=== PATIENT | male | born 1955 | race African-American/Black ===

== ENCOUNTER 2016-09-26 13:32 | Emergency (ER) | payer MEDICAID ==
[~2016-09-26] VITALS: Ht 170.2 cm; Wt 100.0 kg
[~2016-09-26 13:32] MED LIST: ALBU6.7H INH; AMOX-424 PO; ASPI-1035 PO; FLUT1DIS3 INH; LISI1TAB13 PO; METF500T4 PO; [UNRECOGNIZED DRUG - CODE] TP
[2016-09-26 15:34] LABS: CLARITY URINE CLEAR (CLEAR); COLOR URINE YELLOW (YELLOW); GLUCOSE URINE NEGATIVE (NEGATIVE); KETONES URINE TRACE (NEGATIVE); LEUKOCYTE ESTERASE URINE NEGATIVE (NEGATIVE); NITRITE URINE NEGATIVE (NEGATIVE); OCCULT BLOOD URINE NEGATIVE (NEGATIVE); PH URINE 5.5 (4.5-8.0); PROTEIN URINE 2+ (NEGATIVE); SPECIFIC GRAVITY URINE 1.025 (1.005-1.030)
[2016-09-26 15:34] LABS: BASOPHILS % 0.6 % (0.0-2.0); EOSINOPHILS % 1.9 % (0.0-5.0); HEMATOCRIT. 42.9 % (42.0-52.0); HEMOGLOBIN. 14.2 g/dL (14.0-18.0); LYMPHOCYTES % 14.4 % (20.0-50.0); MEAN CORPUSCULAR HEMOGLOBIN 27.3 pg (28.0-32.0); MEAN CORPUSCULAR HGB CONC 33.2 g/dL (31.0-37.0); MEAN CORPUSCULAR VOLUME 82.4 fL (80.0-94.0); MEAN PLATELET VOLUME 10.9 fl (7.4-10.4); NEUTROPHILS % 75.1 % (40.0-76.0); RED BLOOD CELL COUNT 5.21 mill/uL (4.7-6.1); RED CELL DISTRIBUTION WIDTH 20.5 % (11.6-14.6); WHITE BLOOD COUNT 9.5 x1000/uL (4.5-11.0)
[2016-09-26 15:39] LABS: DIFFERENTIAL COMMENT 1
[2016-09-26 15:43] LABS: CHLORIDE 104 mEq/L (98-107); INDEX HEMOLYSI 1 (1-3); INDEX ICTERIC 1 (1-4); INDEX LIPEMIC 1 (1-3)
[2016-09-26 15:52] LABS: ALANINE AMINOTRANSFERASE 30 IU/L (13-61); ALBUMIN 3.8 g/dL (3.4-5.0); ANION GAP 11; CARBON DIOXIDE 30 mEq/L (21-32); UREA NITROGEN BLOOD 13 mg/dL (7-21); eGFR > 60 mL/min (>60)
[2016-09-26 15:53] LABS: BACTERIA URINE 1+; RBC URINE 0-2 /hpf (0-2); SQUAMOUS EPITHELIAL CELL URINE FEW /lpf (RARE/1+); WBC URINE 0-2 /hpf (0-2)
[2016-09-26 16:15] LABS: PLATELET 145 x1000/uL (130-400)
[2016-09-26 18:20] VITALS: BP 155/92
== END 2016-09-26 18:50 | disposition home or self-care (01) ==
LOC: ER 15:13
DX: E11.65 Type 2 diabetes mellitus with hyperglycemia (principal); H92.09 Otalgia, unspecified ear; J02.9 Acute pharyngitis, unspecified; I10 Essential (primary) hypertension; Z79.84 Long term (current) use of oral hypoglycemic drugs; Z79.82 Long term (current) use of aspirin
CPT/HCPCS: 36415; 80053; 81001; 82962; 85025; 93005; 99285

== ENCOUNTER 2017-05-26 14:00 | Inpatient (IN) | payer MEDICAID ==
[~2017-05-26] VITALS: Ht 167.6 cm; Wt 96.2 kg
[~2017-05-26 14:00] MED LIST changes: -ASPI-1035 PO; +ASPI-1159 PO
[2017-05-26 19:25] LABS: HEMOGLOBIN. 13.7 g/dL (14.0-18.0); MEAN CORPUSCULAR HEMOGLOBIN 29.3 pg (28.0-32.0); MEAN CORPUSCULAR VOLUME 87.7 fL (80.0-94.0); MEAN PLATELET VOLUME 11.3 fl (7.4-10.4); PLATELET 105 x1000/uL (130-400); RED BLOOD CELL COUNT 4.68 mill/uL (4.7-6.1); RED CELL DISTRIBUTION WIDTH 15.1 % (11.6-14.6)
[2017-05-26 19:30] LABS: PROTHROMBIN TIME 10.4 sec (9.4-11.6)
[2017-05-26 19:33] LABS: CHLORIDE 107 mEq/L (98-107)
[2017-05-26 19:37] LABS: AMMONIA < 25 uMol/L (<32)
[2017-05-26 19:43] LABS: CARBON DIOXIDE 30 mEq/L (21-32)
[2017-05-26 19:45] LABS: TROPONIN I 0.07 ng/mL (0.00-0.04)
[2017-05-26 19:59] LABS: HEPATITIS B SURFACE ANTIGEN NEGATIVE
[2017-05-26 20:27] LABS: HEPATITIS B CORE AB IGM NEGATIVE
[2017-05-26 20:29] LABS: HEPATITIS A AB IGM NEGATIVE (NEGATIVE)
[2017-05-26 21:30] LABS: ATYPICAL LYMPHOCYTES 2; PLATELET ESTIMATE DECREASED
[2017-05-27] VITALS (7 sets, daily range): BP systolic 95–140; BP diastolic 71–79
[2017-05-27] MEDS ORDERED: ACETAMINOPHEN 325MG TABLET PO PRN (00:15)
[2017-05-27] MEDS ORDERED: CLONIDINE 0.1MG TABLET PO PRN (00:15)
[2017-05-27] MEDS ORDERED: MAGNESIUM/ALUMINUM HYDROXIDE/SIMETHICONE 30ML UDC PO PRN (00:15)
[2017-05-27] MEDS ORDERED: ONDANSETRON HCL 4MG/2ML VIAL IV PRN (00:15)
[2017-05-27 00:36] LABS: CLARITY URINE CLOUDY (CLEAR); COLOR URINE DARK YELLOW (YELLOW); KETONES URINE TRACE (NEGATIVE); LEUKOCYTE ESTERASE URINE NEGATIVE (NEGATIVE); NITRITE URINE NEGATIVE (NEGATIVE); OCCULT BLOOD URINE TRACE (NEGATIVE); PROTEIN URINE 2+ (NEGATIVE); SPECIFIC GRAVITY URINE 1.025 (1.005-1.030)
[2017-05-27] MEDS ORDERED: CEFTRIAXONE 1 G PREMIX 50 ML IV SCH (01:00)
[2017-05-27 01:03] LABS: *AMPHETAMINES SCREEN URINE NEGATIVE (NEGATIVE); *BARBITURATES SCREEN URINE NEGATIVE (NEGATIVE); *BENZODIAZEPINES SCREEN URINE NEGATIVE (NEGATIVE); *COCAINE SCREEN URINE PRESUMTIVE POSITIVE (NEGATIVE); CANNABINOID URINE SCREEN NEGATIVE (NEGATIVE); METHADONE URINE SCREEN NEGATIVE (NEGATIVE); OPIATES URINE SCREEN NEGATIVE (NEGATIVE); PHENCYCLIDINE URINE SCREEN NEGATIVE (NEGATIVE)
[2017-05-27] MEDS ORDERED: AZITHROMYCIN 500 MG in DEXT 5% WATER 250 ML IV SCH (02:00)
[2017-05-27] MEDS: SODIUM CHLORIDE 0.9% 1,000 ML IV SCH ×2 (03:18→18:12)
[2017-05-27] MEDS ORDERED: DEXTROSE 50% WATER 50ML SYRINGE IV PRN (05:30)
[2017-05-27] MEDS: BLOOD SUGAR DIAGNOSTIC STRIP TEST SCH ×4 (06:43→20:37)
[2017-05-27] MEDS: INSULIN LISPRO 100 UNITS/ML SUBCUT SCH ×4 (06:44→22:11)
[2017-05-27 07:08] LABS: HEMATOCRIT. 37.7 % (42.0-52.0); HEMOGLOBIN. 12.5 g/dL (14.0-18.0); MEAN CORPUSCULAR HEMOGLOBIN 28.6 pg (28.0-32.0); MEAN CORPUSCULAR VOLUME 86.4 fL (80.0-94.0); MEAN PLATELET VOLUME 11.7 fl (7.4-10.4); PLATELET 103 x1000/uL (130-400); RED BLOOD CELL COUNT 4.36 mill/uL (4.7-6.1); RED CELL DISTRIBUTION WIDTH 14.8 % (11.6-14.6)
[2017-05-27 07:35] LABS: CREATINE KINASE MB FRACTION 3.1 ng/mL (0.5-3.6); TROPONIN I 0.06 ng/mL (0.00-0.04)
[2017-05-27] MEDS ORDERED: LISINOPRIL PO SCH (09:00)
[2017-05-27] MEDS ORDERED: ALBUTEROL 6.7GM HFA INHALER INH SCH (09:00)
[2017-05-27] MEDS ORDERED: AMOXICILLIN/POTASSIUM CLAVULANATE 875/125MG TAB PO SCH (09:00)
[2017-05-27] MEDS ORDERED: METFORMIN HCL 500MG TABLET PO SCH (09:00)
[2017-05-27] MEDS ORDERED: HYDROCHLOROTHIAZIDE PO SCH (09:00)
[2017-05-27] MEDS ORDERED: AMMONIUM LACTATE 12% LOTION 240ML TOP SCH (09:00)
[2017-05-27] MEDS ORDERED: MEDICATION NOT ON FORMULARY EA (Fluticasone/Salmeterol (Advair 250-50 Diskus) 1 PUFF) INH SCH (09:00)
[2017-05-27] MEDS ORDERED: [UNRECOGNIZED DRUG - OTHER] PO SCH (09:00)
[2017-05-27] MEDS: BUDESONIDE 0.5MG/2ML NEB HHN SCH (09:13)
[2017-05-27] MEDS: LISINOPRIL 20MG TABLET PO SCH (10:55)
[2017-05-27] MEDS: HYDROCHLOROTHIAZIDE 25MG TABLET PO SCH (10:55)
[2017-05-27] MEDS: ASPIRIN 81MG EC TABLET PO SCH (10:56)
[2017-05-27] MEDS: CEFTRIAXONE 1 G PREMIX 50 ML IV SCH (11:02)
[2017-05-27] MEDS ORDERED: INFLUENZA VIRUS VACCINE 0.5ML SYR IM ONE (12:00)
[2017-05-27] MEDS ORDERED: PNEUMOCOCCAL 23-VAL P-SAC VAC 0.5 ML IM ONE (12:00)
[2017-05-27 16:55] LABS: CREATINE KINASE MB FRACTION 4.1 ng/mL (0.5-3.6); TROPONIN I 0.05 ng/mL (0.00-0.04)
[2017-05-27 17:23] LABS: ATYPICAL LYMPHOCYTES 2; PLATELET ESTIMATE DECREASED
[2017-05-27] MEDS: CLOPIDOGREL 75MG TABLET PO SCH (18:12)
[2017-05-27] MEDS: NICOTINE 14MG PATCH TD SCH (18:12)
[2017-05-28] VITALS: BP 145/67
[2017-05-28 04:00] VITALS: BP 152/89
[2017-05-28] MEDS: IPRATROPIUM/ALBUTEROL 0.5-3(2.5)MG/3ML NEB INH PRN ×2 (04:55→21:22)
[2017-05-28] MEDS: ALBUTEROL (0.083%) 2.5MG/3ML NEB HHN SCH ×3 (04:58→14:20)
[2017-05-28] MEDS: SODIUM CHLORIDE 0.9% 1,000 ML IV SCH ×3 (05:35→22:40)
[2017-05-28] MEDS ORDERED: AZITHROMYCIN 500MG in DEXTROSE 5% WATER 250ML IV SCH (06:00)
[2017-05-28] MEDS: BLOOD SUGAR DIAGNOSTIC STRIP TEST SCH ×4 (06:17→21:00)
[2017-05-28] MEDS: INSULIN LISPRO 100 UNITS/ML SUBCUT SCH ×4 (06:28→22:48)
[2017-05-28 06:58] LABS: HEMATOCRIT. 39.1 % (42.0-52.0); HEMOGLOBIN. 13.2 g/dL (14.0-18.0); MEAN CORPUSCULAR HEMOGLOBIN 29.5 pg (28.0-32.0); MEAN CORPUSCULAR VOLUME 87.3 fL (80.0-94.0); MEAN PLATELET VOLUME 11.7 fl (7.4-10.4); PLATELET 116 x1000/uL (130-400); RED BLOOD CELL COUNT 4.48 mill/uL (4.7-6.1); RED CELL DISTRIBUTION WIDTH 14.8 % (11.6-14.6)
[2017-05-28 08:00] VITALS: BP 122/76
[2017-05-28] MEDS: ASPIRIN 81MG EC TABLET PO SCH (08:14)
[2017-05-28] MEDS: CLOPIDOGREL 75MG TABLET PO SCH (08:14)
[2017-05-28] MEDS: HYDROCHLOROTHIAZIDE 25MG TABLET PO SCH (08:14)
[2017-05-28] MEDS: LISINOPRIL 20MG TABLET PO SCH (08:14)
[2017-05-28] MEDS: NICOTINE 14MG PATCH TD SCH (08:15)
[2017-05-28] MEDS: CEFTRIAXONE 1 G PREMIX 50 ML IV SCH (09:17)
[2017-05-28 12:00] VITALS: BP 134/71
[2017-05-28 13:52] LABS: PLATELET ESTIMATE SLIGHTLY DECREASED
[2017-05-28 16:00] VITALS: BP 146/68
[2017-05-28 19:51] LABS: ETHANOL BLOOD < 10 mg/dL; T4 FREE 1.47 ng/dL (0.76-1.46)
[2017-05-28 20:56] VITALS: BP 154/85
[2017-05-28 21:10] LABS: FOLIC ACID (FOLATE) SERUM 11.1 ng/mL (>5.38)
[2017-05-28] MEDS: BUDESONIDE 0.5MG/2ML NEB HHN SCH (21:22)
[2017-05-29 00:25] VITALS: BP 141/80
[2017-05-29] MEDS: IPRATROPIUM/ALBUTEROL 0.5-3(2.5)MG/3ML NEB INH PRN ×2 (01:11→16:09)
[2017-05-29 04:00] VITALS: BP 141/75
[2017-05-29] MEDS: BLOOD SUGAR DIAGNOSTIC STRIP TEST SCH ×4 (07:10→20:37)
[2017-05-29 07:43] LABS: HEMATOCRIT. 39.3 % (42.0-52.0); HEMOGLOBIN. 12.9 g/dL (14.0-18.0); MEAN CORPUSCULAR HEMOGLOBIN 28.4 pg (28.0-32.0); MEAN CORPUSCULAR VOLUME 86.7 fL (80.0-94.0); MEAN PLATELET VOLUME 11.3 fl (7.4-10.4); PLATELET 131 x1000/uL (130-400); RED BLOOD CELL COUNT 4.54 mill/uL (4.7-6.1); RED CELL DISTRIBUTION WIDTH 14.7 % (11.6-14.6)
[2017-05-29] MEDS: AZITHROMYCIN 500 MG in SODIUM CHLORIDE 0.9% 250 ML IV SCH (07:49)
[2017-05-29 08:00] VITALS: BP 156/96
[2017-05-29 08:17] LABS: CARBON DIOXIDE 29 mEq/L (21-32); CHLORIDE 107 mEq/L (98-107)
[2017-05-29] MEDS: BUDESONIDE 0.5MG/2ML NEB HHN SCH ×2 (08:41→21:16)
[2017-05-29] MEDS: ALBUTEROL (0.083%) 2.5MG/3ML NEB HHN SCH ×3 (08:41→21:16)
[2017-05-29] MEDS: ASPIRIN 81MG EC TABLET PO SCH (09:00)
[2017-05-29] MEDS: INSULIN LISPRO 100 UNITS/ML SUBCUT SCH ×4 (09:09→21:44)
[2017-05-29] MEDS: HYDROCHLOROTHIAZIDE 25MG TABLET PO SCH (10:36)
[2017-05-29] MEDS: CLOPIDOGREL 75MG TABLET PO SCH (10:37)
[2017-05-29] MEDS: LISINOPRIL 20MG TABLET PO SCH (10:37)
[2017-05-29] MEDS: NICOTINE 14MG PATCH TD SCH (10:39)
[2017-05-29] MEDS: CEFTRIAXONE 1 G PREMIX 50 ML IV SCH (11:11)
[2017-05-29 12:00] VITALS: BP 172/85
[2017-05-29 12:01] LABS: PLATELET ESTIMATE NORMAL
[2017-05-29] MEDS: CARVEDILOL 6.25 MG TABLET PO SCH ×2 (13:30→21:35)
[2017-05-29 16:00] VITALS: BP 140/86
[2017-05-29] MEDS: SODIUM CHLORIDE 0.9% 1,000 ML IV SCH (18:19)
[2017-05-29 20:00] VITALS: BP 161/88
[2017-05-30 00:15] VITALS: BP 166/73
[2017-05-30] MEDS: ALBUTEROL (0.083%) 2.5MG/3ML NEB HHN SCH ×3 (02:13→13:03)
[2017-05-30 04:00] VITALS: BP 151/90
[2017-05-30] MEDS: AZITHROMYCIN 500 MG in SODIUM CHLORIDE 0.9% 250 ML IV SCH (05:18)
[2017-05-30] MEDS: INSULIN LISPRO 100 UNITS/ML SUBCUT SCH ×3 (06:04→17:36)
[2017-05-30] MEDS: BLOOD SUGAR DIAGNOSTIC STRIP TEST SCH ×3 (06:19→16:24)
[2017-05-30 07:06] LABS: BASOPHILS % 0.3 % (0.0-2.0); EOSINOPHILS % 0.8 % (0.0-5.0); HEMATOCRIT. 38.8 % (42.0-52.0); HEMOGLOBIN. 13.1 g/dL (14.0-18.0); LYMPHOCYTES % 21.8 % (20.0-50.0); MEAN CORPUSCULAR HEMOGLOBIN 29.2 pg (28.0-32.0); MEAN CORPUSCULAR VOLUME 86.6 fL (80.0-94.0); MONOCYTES % 14.8 % (2.0-8.0); NEUTROPHILS % 62.3 % (40.0-76.0); PLATELET 141 x1000/uL (130-400); RED BLOOD CELL COUNT 4.48 mill/uL (4.7-6.1); RED CELL DISTRIBUTION WIDTH 14.6 % (11.6-14.6)
[2017-05-30 07:28] LABS: CARBON DIOXIDE 29 mEq/L (21-32); CHLORIDE 103 mEq/L (98-107)
[2017-05-30] MEDS: BUDESONIDE 0.5MG/2ML NEB HHN SCH (07:31)
[2017-05-30 08:00] VITALS: BP 113/73
[2017-05-30] MEDS: HYDROCHLOROTHIAZIDE 25MG TABLET PO SCH (08:58)
[2017-05-30] MEDS: ASPIRIN 81MG EC TABLET PO SCH (08:59)
[2017-05-30] MEDS: LISINOPRIL 20MG TABLET PO SCH (08:59)
[2017-05-30] MEDS: CARVEDILOL 6.25 MG TABLET PO SCH (08:59)
[2017-05-30] MEDS: NICOTINE 14MG PATCH TD SCH (09:00)
[2017-05-30] MEDS: CLOPIDOGREL 75MG TABLET PO SCH (09:54)
[2017-05-30] MEDS: CEFTRIAXONE 1 G PREMIX 50 ML IV SCH (10:11)
[2017-05-30 14:32] VITALS: BP 152/81
[2017-05-30 16:00] VITALS: BP 151/72
[2017-05-31] MEDS ORDERED: AZITHROMYCIN 500 MG TABLET PO SCH (09:00)
[2017-05-31] MEDS ORDERED: CEFTRIAXONE 1,000 MG in DEXTROSE 5% WATER 50 ML IV SCH (10:00)
== END 2017-05-30 17:59 | disposition home health service (06) | DRG 720 ==
LOC: ER 15:20 → 8WST 20:48 → ENRESERV 21:19
PROVIDERS: ADMIT Internal Medicine; ATTEND Internal Medicine
DX: A41.9 Sepsis, unspecified organism (principal); I21.4 Non-ST elevation (NSTEMI) myocardial infarction; I63.8 Other cerebral infarction; J96.00 Acute respiratory failure, unspecified whether with hypoxia or hypercapnia; G93.41 Metabolic encephalopathy; D69.6 Thrombocytopenia, unspecified; E11.22 Type 2 diabetes mellitus with diabetic chronic kidney disease; N17.9 Acute kidney failure, unspecified; I13.0 Hypertensive heart and chronic kidney disease with heart failure and stage 1 through stage 4 chronic kidney disease, or unspecified chronic kidney disease; I50.9 Heart failure, unspecified; E11.65 Type 2 diabetes mellitus with hyperglycemia; D64.9 Anemia, unspecified; R74.0 Nonspecific elevation of levels of transaminase and lactic acid dehydrogenase [LDH]; E66.9 Obesity, unspecified; E78.00 Pure hypercholesterolemia, unspecified; R26.9 Unspecified abnormalities of gait and mobility; R47.1 Dysarthria and anarthria; M62.82 Rhabdomyolysis; N18.9 Chronic kidney disease, unspecified; F14.920 Cocaine use, unspecified with intoxication, uncomplicated; F17.210 Nicotine dependence, cigarettes, uncomplicated; G81.94 Hemiplegia, unspecified affecting left nondominant side; J68.0 Bronchitis and pneumonitis due to chemicals, gases, fumes and vapors; Y92.89 Other specified places as the place of occurrence of the external cause; Z79.82 Long term (current) use of aspirin; Z79.84 Long term (current) use of oral hypoglycemic drugs; Z79.899 Other long term (current) drug therapy; Z86.73 Personal history of transient ischemic attack (TIA), and cerebral infarction without residual deficits; Z68.34 Body mass index [BMI] 34.0-34.9, adult; Z71.51 Drug abuse counseling and surveillance of drug abuser
CPT/HCPCS: 36415; 70450; 70544; 70551; 71045; 76770; 80048; 80053; 80061; 80305; 81001; 82140; 82550; 82553; 82607; 82746; 82962; 83036; 83735; 83880; 84439; 84443; 84481; 84484; 85025; 85610; 86705; 86709; 86803; 87040; 87086; 87340; 87804; 92610; 93005; 93306; 93880; 94640; 94664; 96374; 96375; 97116; 97162; 97166; 99285; C1893; G0482; J0456; J0696; J1815; J7030; J7050; J7060; J7611; J7620; J7626

== ENCOUNTER 2021-03-23 17:53 | Inpatient (IN) | payer OTHER, MEDICAID ==
[~2021-03-23] VITALS: Ht 170.2 cm; Wt 95.3 kg
[~2021-03-23 17:53] MED LIST changes: -ALBU6.7H INH; +ALBU6.7H15 INH; -ASPI-1159 PO; +ASPI-1497 PO; +METF-414 PO; -METF500T4 PO
[2021-03-23] MEDS ORDERED: DOXYCYCLINE HYCLATE 100MG CAPSULE PO NR (19:00)
[2021-03-23] MEDS ORDERED: AMOXICILLIN/POTASSIUM CLAVULANATE 875/125MG TAB PO NR (19:00)
[2021-03-23 19:14] LABS: BASOPHILS % 0.4 % (0.0-2.0); EOSINOPHILS % 1.2 % (0.0-5.0); HEMATOCRIT. 45.1 % (42.0-52.0); HEMOGLOBIN. 14.4 g/dL (14.0-18.0); LYMPHOCYTES % 8.9 % (20.0-50.0); MEAN CORPUSCULAR HEMOGLOBIN 29.3 pg (28.0-32.0); MEAN CORPUSCULAR VOLUME 91.4 fL (80.0-94.0); MEAN PLATELET VOLUME 11.7 fl (7.4-10.4); NEUTROPHILS % 78.5 % (40.0-76.0); PLATELET 142 x1000/uL (130-400); RED BLOOD CELL COUNT 4.93 mill/uL (4.7-6.1); RED CELL DISTRIBUTION WIDTH 14.2 % (11.6-14.6)
[2021-03-23 19:15] LABS: CHLORIDE 103 mEq/L (98-107)
[2021-03-23] MEDS ORDERED: SODIUM CHLORIDE 0.9% 1,000 ML IV ONE (21:30)
[2021-03-24] MEDS ORDERED: IPRATROPIUM/ALBUTEROL 0.5-3(2.5)MG/3ML NEB HHN PRN (01:45)
[2021-03-24] MEDS ORDERED: ACETAMINOPHEN 325MG TABLET PO PRN ×2 (01:45)
[2021-03-24] MEDS ORDERED: ONDANSETRON HCL 4MG/2ML INJ IV PRN (01:45)
[2021-03-24] MEDS ORDERED: CLONIDINE 0.1MG TABLET PO PRN (01:45)
[2021-03-24] MEDS ORDERED: GUAIFENESIN 200MG/10ML SUGAR FREE UDC PO PRN (01:45)
[2021-03-24] MEDS ORDERED: DIPHENHYDRAMINE 50MG/ML VIAL IV PRN (01:45)
[2021-03-24] MEDS ORDERED: DEXTROSE 50% WATER 50ML SYRINGE IV PRN (02:00)
[2021-03-24] MEDS ORDERED: LEVOFLOXACIN 500MG PREMIX 100 ML IV SCH (04:00)
[2021-03-24] MEDS: SODIUM CHLORIDE 0.9% INJ 3ML FLUSH IVF SCH ×3 (06:38→21:30)
[2021-03-24] MEDS: ENOXAPARIN 40MG/0.4ML SYR SUBCUT SCH (06:42)
[2021-03-24] MEDS: BLOOD SUGAR DIAGNOSTIC STRIP TEST SCH ×4 (07:00→21:29)
[2021-03-24] MEDS: AMLODIPINE 5MG TABLET PO SCH ×2 (08:58→21:28)
[2021-03-24] MEDS: ASPIRIN 81MG EC TABLET PO SCH (08:58)
[2021-03-24] MEDS: GUAIFENESIN 600MG ER TABLET PO SCH ×2 (08:58→21:29)
[2021-03-24] MEDS: INSULIN LISPRO 100 UNITS/ML SUBCUT SCH ×4 (09:22→21:00)
[2021-03-24 11:03] VITALS: BP 134/75
[2021-03-24 12:00] VITALS: BP 132/73
[2021-03-24 20:00] VITALS: BP 139/69
[2021-03-24] MEDS: IPRATROPIUM/ALBUTEROL 0.5-3(2.5)MG/3ML NEB HHN SCH (20:49)
[2021-03-24] MEDS ORDERED: ZOLPIDEM TARTRATE 5MG TABLET PO PRN (21:00)
[2021-03-25] VITALS: BP 127/72
[2021-03-25] MEDS: IPRATROPIUM/ALBUTEROL 0.5-3(2.5)MG/3ML NEB HHN SCH ×4 (01:13→22:26)
[2021-03-25 04:00] VITALS: BP 142/85
[2021-03-25] MEDS: LEVOFLOXACIN 250MG PREMIX 50 ML IV SCH (05:03)
[2021-03-25] MEDS: SODIUM CHLORIDE 0.9% INJ 3ML FLUSH IVF SCH ×3 (06:25→20:49)
[2021-03-25] MEDS: ENOXAPARIN 40MG/0.4ML SYR SUBCUT SCH (06:25)
[2021-03-25] MEDS: BLOOD SUGAR DIAGNOSTIC STRIP TEST SCH ×4 (06:29→20:49)
[2021-03-25] MEDS: INSULIN LISPRO 100 UNITS/ML SUBCUT SCH ×4 (06:30→20:49)
[2021-03-25] MEDS ORDERED: CANA100T PO (07:29)
[2021-03-25] MEDS ORDERED: PRED5DRO22 RIGHTEYE (07:29)
[2021-03-25] MEDS ORDERED: PRED5DRO22 LEFTEYE (07:29)
[2021-03-25] MEDS ORDERED: SITA100T11 PO (07:29)
[2021-03-25] MEDS ORDERED: HYDR25TA PO (07:29)
[2021-03-25] MEDS ORDERED: AMLO10TA80 PO (07:29)
[2021-03-25] MEDS ORDERED: ATOR40TA70 PO (07:29)
[2021-03-25 08:00] VITALS: BP 156/87
[2021-03-25] MEDS: GUAIFENESIN 600MG ER TABLET PO SCH ×2 (09:10→20:40)
[2021-03-25] MEDS: AMLODIPINE 5MG TABLET PO SCH ×2 (09:10→20:47)
[2021-03-25] MEDS: ASPIRIN 81MG EC TABLET PO SCH (09:10)
[2021-03-25 12:00] VITALS: BP 130/77
[2021-03-25 16:00] VITALS: BP 137/80
[2021-03-25] MEDS ORDERED: *PATIENT'S OWN MEDICATION STORAGE XX SCH (18:45)
[2021-03-25 20:00] VITALS: BP 112/51
[2021-03-26] VITALS: BP 120/61
[2021-03-26] MEDS: IPRATROPIUM/ALBUTEROL 0.5-3(2.5)MG/3ML NEB HHN SCH ×3 (01:42→12:39)
[2021-03-26 04:00] VITALS: BP 144/68
[2021-03-26] MEDS: LEVOFLOXACIN 250MG PREMIX 50 ML IV SCH (04:13)
[2021-03-26] MEDS: BLOOD SUGAR DIAGNOSTIC STRIP TEST SCH ×2 (06:16→11:49)
[2021-03-26] MEDS: SODIUM CHLORIDE 0.9% INJ 3ML FLUSH IVF SCH ×2 (06:16→14:06)
[2021-03-26] MEDS: INSULIN LISPRO 100 UNITS/ML SUBCUT SCH ×2 (06:17→12:15)
[2021-03-26] MEDS ORDERED: ENOXAPARIN 30MG/0.3ML SYR SUBCUT SCH (09:00)
[2021-03-26] MEDS: GUAIFENESIN 600MG ER TABLET PO SCH (09:43)
[2021-03-26] MEDS: ASPIRIN 81MG EC TABLET PO SCH (09:43)
[2021-03-26] MEDS: AMLODIPINE 5MG TABLET PO SCH (09:44)
[2021-03-26 10:16] LABS: BASOPHILS % 0.6 % (0.0-2.0); EOSINOPHILS % 1.8 % (0.0-5.0); HEMATOCRIT. 41.9 % (42.0-52.0); HEMOGLOBIN. 13.9 g/dL (14.0-18.0); LYMPHOCYTES % 12.5 % (20.0-50.0); MEAN CORPUSCULAR HEMOGLOBIN 29.6 pg (28.0-32.0); MEAN CORPUSCULAR VOLUME 89.3 fL (80.0-94.0); MONOCYTES % 10.2 % (2.0-8.0); NEUTROPHILS % 74.9 % (40.0-76.0); PLATELET 151 x1000/uL (130-400); RED BLOOD CELL COUNT 4.69 mill/uL (4.7-6.1); RED CELL DISTRIBUTION WIDTH 13.4 % (11.6-14.6)
[2021-03-26 11:02] LABS: CHLORIDE 102 mEq/L (98-107)
[2021-03-26 11:10] LABS: PHOSPHORUS 2.6 mg/dL (2.5-4.9)
[2021-03-26 15:25] VITALS: BP 122/68
[2021-03-27] MEDS ORDERED: LEVOFLOXACIN 250MG TABLET PO SCH (11:00)
[2021-03-27] MEDS ORDERED: LEVOFLOXACIN 500MG TABLET PO SCH (11:00)
== END 2021-03-26 16:14 | disposition home or self-care (01) | DRG 190 ==
LOC: ER 17:53 → 7EST 03-24 00:13 → EDBEDREQTM 03-24 00:30 → EDBEDREQ 03-24 00:30 → EDBEDREQDT 03-24 00:30 → EDBEDREQSVC 03-24 07:04 → ENRESERV 03-24 09:00
PROVIDERS: ADMIT Internal Medicine; ATTEND Internal Medicine
DX: J44.0 Chronic obstructive pulmonary disease with (acute) lower respiratory infection (principal); J18.9 Pneumonia, unspecified organism; N17.9 Acute kidney failure, unspecified; E11.22 Type 2 diabetes mellitus with diabetic chronic kidney disease; Z20.822 Contact with and (suspected) exposure to COVID-19; E11.65 Type 2 diabetes mellitus with hyperglycemia; F17.200 Nicotine dependence, unspecified, uncomplicated; I12.9 Hypertensive chronic kidney disease with stage 1 through stage 4 chronic kidney disease, or unspecified chronic kidney disease; N18.9 Chronic kidney disease, unspecified; Z86.73 Personal history of transient ischemic attack (TIA), and cerebral infarction without residual deficits; Z79.82 Long term (current) use of aspirin; Z79.84 Long term (current) use of oral hypoglycemic drugs; Z79.899 Other long term (current) drug therapy
CPT/HCPCS: 36415; 71045; 80048; 80053; 82962; 83036; 83735; 84100; 85025; 87426; 94640; 99285; C9803; J1650; J1815; J1956; U0003; U0005

== ENCOUNTER 2021-06-29 13:53 | Inpatient (IN) | payer OTHER, MEDICAID ==
[~2021-06-29] VITALS: Ht 170.2 cm; Wt 94.8 kg
[~2021-06-29 13:53] MED LIST changes: -ALBU6.7H15 INH; +AMLO10TA80 PO; -AMOX-424 PO; -ASPI-1497 PO; +ATOR40TA70 PO; +CANA100T PO; -FLUT1DIS3 INH; +HYDR25TA PO; -LISI1TAB13 PO; -METF-414 PO; +PRED5DRO22 LEFTEYE; +PRED5DRO22 RIGHTEYE; +SITA100T11 PO; -[UNRECOGNIZED DRUG - CODE] TP
[2021-06-29] MEDS ORDERED: IPRATROPIUM BROMIDE (0.02%) 0.5MG/2.5ML NEB HHN STA (13:58)
[2021-06-29 14:40] LABS: HEMATOCRIT. 42.3 % (42.0-52.0); HEMOGLOBIN. 13.8 g/dL (14.0-18.0); MEAN CORPUSCULAR HEMOGLOBIN 28.7 pg (28.0-32.0); MEAN PLATELET VOLUME 11.4 fl (7.4-10.4); PLATELET 125 x1000/uL (130-400); RED BLOOD CELL COUNT 4.81 mill/uL (4.7-6.1); RED CELL DISTRIBUTION WIDTH 14.8 % (11.6-14.6)
[2021-06-29 14:46] LABS: CHLORIDE 101 mEq/L (98-107)
[2021-06-29] MEDS: ALBUTEROL (0.083%) 2.5MG/3ML NEB HHN SCH (15:00)
[2021-06-29 15:05] LABS: PLATELET ESTIMATE SLIGHTLY DECREASED
[2021-06-29 15:29] LABS: CLARITY URINE CLEAR (CLEAR); COLOR URINE YELLOW (YELLOW); KETONES URINE NEGATIVE (NEGATIVE); LEUKOCYTE ESTERASE URINE NEGATIVE (NEGATIVE); NITRITE URINE NEGATIVE (NEGATIVE); OCCULT BLOOD URINE NEGATIVE (NEGATIVE); PROTEIN URINE NEGATIVE (NEGATIVE); SPECIFIC GRAVITY URINE 1.032 (1.005-1.030); UROBILINOGEN URINE 0.2 E.U./dL (0.2-1.0)
[2021-06-29] MEDS ORDERED: VANCOMYCIN 1G PREMIX 200 ML IV ONE (15:30)
[2021-06-29] MEDS ORDERED: SODIUM CHLORIDE 0.9% 1000ML BAG (SEPSIS BOLUS) IV ONE (15:30)
[2021-06-29] MEDS ORDERED: PIPERACILLIN/TAZ 3.375G PREMIX 50 ML IV ONE (15:30)
[2021-06-29] MEDS ORDERED: VANCOMYCIN 1GM PMX (XELLIA) 200 ML IV NR (15:34)
[2021-06-29] MEDS ORDERED: NITROGLYCERIN 0.4MG TABLET SL SL PRN (15:45)
[2021-06-29] MEDS ORDERED: ASPIRIN 81MG TABLET PO ONE (15:45)
[2021-06-29 15:48] LABS: BG BASE EXCESS -1.1 mmol/L (-2.0-2.0); BG CARBOXYHEMOGLOBIN 2.1 % (0.5-1.5); BG DEOXYHEMOGLOBIN 3.9 % (0.0-5.0); BG FRACTION INSPIRED OXYGEN 60; BG HCO3 ACT 21.7 mmol/L (22.0-26.0); BG METHEMOGLOBIN 0.3 % (0.0-1.5); BG OXYHEMOGLOBIN 93.7 % (94.0-97.0); BG PCO2 31.2 mmHg (35.0-45.0); BG PH 7.461 (7.350-7.450); BG PO2 79.4 mmHg (75.0-100.0); BG SAMPLE SITE RIGHT RADIAL; BG TOTAL HEMOGLOBIN 14.3 g/dL (12.0-18.0); BG VENT MODE HHN
[2021-06-29 17:37] LABS: BG BASE EXCESS -4.5 mmol/L (-2.0-2.0); BG CARBOXYHEMOGLOBIN 0.9 % (0.5-1.5); BG DEOXYHEMOGLOBIN 0.8 % (0.0-5.0); BG HCO3 ACT 19.4 mmol/L (22.0-26.0); BG METHEMOGLOBIN 0.3 % (0.0-1.5); BG OXYGEN SATURATION 99.2 % (92.0-98.5); BG PCO2 32.6 mmHg (35.0-45.0); BG PH 7.392 (7.350-7.450); BG PO2 234.4 mmHg (75.0-100.0); BG SAMPLE SITE RIGHT RADIAL; BG TOTAL HEMOGLOBIN 13.9 g/dL (12.0-18.0); BG VENT MODE MASK - BIPAP
[2021-06-29] MEDS ORDERED: CLONIDINE 0.1MG TABLET PO PRN (18:30)
[2021-06-29] MEDS ORDERED: IPRATROPIUM/ALBUTEROL 0.5-3(2.5)MG/3ML NEB NEB PRN (18:30)
[2021-06-29] MEDS ORDERED: MAGNESIUM/ALUMINUM HYDROXIDE/SIMETHICONE 30ML UDC PO PRN (18:30)
[2021-06-29] MEDS ORDERED: DIPHENHYDRAMINE 50MG/ML VIAL IV PRN (18:30)
[2021-06-29] MEDS ORDERED: ZOLPIDEM TARTRATE 5MG TABLET PO PRN (18:30)
[2021-06-29] MEDS ORDERED: GUAIFENESIN 200MG/10ML SUGAR FREE UDC PO PRN (18:30)
[2021-06-29] MEDS ORDERED: ACETAMINOPHEN 325MG TABLET PO PRN ×2 (18:30)
[2021-06-29] MEDS ORDERED: DEXTROSE 50% WATER 50ML SYRINGE IV PRN (18:30)
[2021-06-29] MEDS: LEVOFLOXACIN 500MG PREMIX 100 ML IV NR ×2 (21:00→23:16)
[2021-06-29] MEDS: GUAIFENESIN 600MG ER TABLET PO SCH (21:12)
[2021-06-29] MEDS: INSULIN LISPRO 100 UNITS/ML SUBCUT SCH (21:19)
[2021-06-29] MEDS ORDERED: INSULIN GLARGINE UD 100 UNITS/ML SYR SUBCUT SCH (22:00)
[2021-06-29] MEDS: SODIUM CHLORIDE 0.9% INJ 3ML FLUSH IVF SCH (22:00)
[2021-06-29 22:48] VITALS: BP 130/57
[2021-06-29] MEDS: BLOOD SUGAR DIAGNOSTIC STRIP TEST SCH (23:00)
[2021-06-30] VITALS (14 sets, daily range): BP systolic 94–130; BP diastolic 29–76
[2021-06-30] MEDS: INSULIN GLARGINE UD 100 UNITS/ML SYR SUBCUT SCH ×2 (00:07→21:42)
[2021-06-30] MEDS ORDERED: INFLUENZA VACCINE 05/PF 0.5 ML SYRINGE IM ONE (00:15)
[2021-06-30] MEDS: INSULIN LISPRO 100 UNITS/ML SUBCUT SCH ×4 (07:08→21:00)
[2021-06-30] MEDS: BLOOD SUGAR DIAGNOSTIC STRIP TEST SCH ×4 (07:08→21:38)
[2021-06-30] MEDS: SODIUM CHLORIDE 0.9% INJ 3ML FLUSH IVF SCH ×3 (07:09→21:38)
[2021-06-30] MEDS ORDERED: PNEUMOCOCCAL 23-VAL P-SAC VAC 0.5 ML IM ONE (08:00)
[2021-06-30] MEDS: GUAIFENESIN 600MG ER TABLET PO SCH ×2 (08:38→21:38)
[2021-06-30] MEDS: IPRATROPIUM/ALBUTEROL 0.5-3(2.5)MG/3ML NEB HHN SCH ×3 (09:24→20:04)
[2021-06-30] MEDS ORDERED: SODIUM CHLORIDE 10% FOR INH 15ML VIAL NEB INH SCH (12:00)
[2021-06-30 13:38] LABS: *AMPHETAMINES SCREEN URINE NEGATIVE (NEGATIVE); *BARBITURATES SCREEN URINE NEGATIVE (NEGATIVE)
[2021-06-30 13:39] LABS: *BENZODIAZEPINES SCREEN URINE NEGATIVE (NEGATIVE); *COCAINE SCREEN URINE PRESUMTIVE POSITIVE (NEGATIVE); CANNABINOID URINE SCREEN NEGATIVE (NEGATIVE); METHADONE URINE SCREEN NEGATIVE (NEGATIVE); OPIATES URINE SCREEN NEGATIVE (NEGATIVE); PHENCYCLIDINE URINE SCREEN NEGATIVE (NEGATIVE)
[2021-06-30] MEDS: ACETYLCYSTEINE 100MG/ML 10% VIAL 4ML INH SCH (13:56)
[2021-06-30] MEDS: SODIUM CHLORIDE 0.9% 1,000 ML IV SCH (14:32)
[2021-06-30] MEDS: ENOXAPARIN 40MG/0.4ML SYR SUBCUT SCH (14:32)
[2021-06-30] MEDS: LEVOFLOXACIN 250MG PREMIX 50ML IV SCH (21:37)
[2021-07-01] VITALS (13 sets, daily range): BP systolic 105–144; BP diastolic 26–85
[2021-07-01] MEDS: ACETYLCYSTEINE 100MG/ML 10% VIAL 4ML INH SCH ×2 (01:42→09:45)
[2021-07-01] MEDS: IPRATROPIUM/ALBUTEROL 0.5-3(2.5)MG/3ML NEB HHN SCH ×3 (01:42→21:00)
[2021-07-01] MEDS: SODIUM CHLORIDE 0.9% INJ 3ML FLUSH IVF SCH ×2 (06:00→23:17)
[2021-07-01] MEDS: BLOOD SUGAR DIAGNOSTIC STRIP TEST SCH ×4 (06:48→21:00)
[2021-07-01 07:06] LABS: HEMATOCRIT. 35.4 % (42.0-52.0); HEMOGLOBIN. 11.9 g/dL (14.0-18.0); MEAN CORPUSCULAR HEMOGLOBIN 29.6 pg (28.0-32.0); MEAN CORPUSCULAR VOLUME 88.2 fL (80.0-94.0); MEAN PLATELET VOLUME 11.7 fl (7.4-10.4); PLATELET 109 x1000/uL (130-400); RED BLOOD CELL COUNT 4.02 mill/uL (4.7-6.1); RED CELL DISTRIBUTION WIDTH 14.6 % (11.6-14.6)
[2021-07-01 07:38] LABS: PHOSPHORUS 2.5 mg/dL (2.5-4.9)
[2021-07-01] MEDS: GUAIFENESIN 600MG ER TABLET PO SCH ×2 (07:38→22:51)
[2021-07-01] MEDS: ENOXAPARIN 40MG/0.4ML SYR SUBCUT SCH (07:39)
[2021-07-01] MEDS: INSULIN LISPRO 100 UNITS/ML SUBCUT SCH ×4 (07:39→21:00)
[2021-07-01] MEDS ORDERED: POTASSIUM CHLORIDE 20MEQ TABLET SR PO NR (09:45)
[2021-07-01 11:51] LABS: PLATELET ESTIMATE DECREAS
[2021-07-01] MEDS ORDERED: GUAIFENESIN 200MG/10ML SUGAR FREE UDC PO PRN (13:45)
[2021-07-01] MEDS: LEVOFLOXACIN 250MG PREMIX 50ML IV SCH (22:51)
[2021-07-01] MEDS: SODIUM CHLORIDE 0.9% 1,000 ML IV SCH ×2 (22:51→22:54)
[2021-07-01] MEDS: INSULIN GLARGINE UD 100 UNITS/ML SYR SUBCUT SCH (22:53)
[2021-07-02] VITALS (10 sets, daily range): BP systolic 97–162; BP diastolic 29–82
[2021-07-02] MEDS: IPRATROPIUM/ALBUTEROL 0.5-3(2.5)MG/3ML NEB HHN SCH ×6 (00:59→22:01)
[2021-07-02] MEDS: ACETYLCYSTEINE 100MG/ML 10% VIAL 4ML INH SCH ×3 (00:59→16:03)
[2021-07-02] MEDS: BLOOD SUGAR DIAGNOSTIC STRIP TEST SCH ×4 (05:58→20:58)
[2021-07-02] MEDS: SODIUM CHLORIDE 0.9% INJ 3ML FLUSH IVF SCH ×3 (05:59→22:00)
[2021-07-02] MEDS: INSULIN LISPRO 100 UNITS/ML SUBCUT SCH ×4 (07:01→20:57)
[2021-07-02 08:07] LABS: HIV SCREEN 4G Non Reactive (Non Reactive)
[2021-07-02 08:17] LABS: BASOPHILS % 0.4 % (0.0-2.0); EOSINOPHILS % 0.7 % (0.0-5.0); HEMATOCRIT. 36.9 % (42.0-52.0); HEMOGLOBIN. 12.3 g/dL (14.0-18.0); MEAN CORPUSCULAR HEMOGLOBIN 29.3 pg (28.0-32.0); MEAN PLATELET VOLUME 11.2 fl (7.4-10.4); NEUTROPHILS % 80.9 % (40.0-76.0); PLATELET 136 x1000/uL (130-400); RED BLOOD CELL COUNT 4.19 mill/uL (4.7-6.1); RED CELL DISTRIBUTION WIDTH 14.5 % (11.6-14.6)
[2021-07-02] MEDS: ENOXAPARIN 40MG/0.4ML SYR SUBCUT SCH (08:40)
[2021-07-02] MEDS: GUAIFENESIN 600MG ER TABLET PO SCH ×2 (08:41→22:24)
[2021-07-02 10:23] LABS: CHLORIDE 107 mEq/L (98-107)
[2021-07-02] MEDS ORDERED: POTASSIUM CHLORIDE 20MEQ TABLET SR PO NR (12:45)
[2021-07-02] MEDS: SODIUM CHLORIDE 0.9% 1,000 ML IV SCH (15:00)
[2021-07-02] MEDS: INSULIN GLARGINE UD 100 UNITS/ML SYR SUBCUT SCH (21:47)
[2021-07-02] MEDS: ENOXAPARIN 30MG/0.3ML SYR SUBCUT SCH (22:24)
[2021-07-02] MEDS: LEVOFLOXACIN 250MG PREMIX 50ML IV SCH (22:30)
[2021-07-03] VITALS (7 sets, daily range): BP systolic 129–166; BP diastolic 72–95
[2021-07-03] MEDS: ACETYLCYSTEINE 100MG/ML 10% VIAL 4ML INH SCH (00:46)
[2021-07-03] MEDS: IPRATROPIUM/ALBUTEROL 0.5-3(2.5)MG/3ML NEB HHN SCH ×4 (00:46→13:28)
[2021-07-03] MEDS: INSULIN LISPRO 100 UNITS/ML SUBCUT SCH ×2 (05:51→12:23)
[2021-07-03] MEDS: BLOOD SUGAR DIAGNOSTIC STRIP TEST SCH ×2 (05:51→11:47)
[2021-07-03] MEDS: SODIUM CHLORIDE 0.9% INJ 3ML FLUSH IVF SCH ×2 (05:52→13:44)
[2021-07-03] MEDS: SODIUM CHLORIDE 0.9% 1,000 ML IV SCH (07:55)
[2021-07-03] MEDS: ENOXAPARIN 30MG/0.3ML SYR SUBCUT SCH (08:13)
[2021-07-03] MEDS: GUAIFENESIN 600MG ER TABLET PO SCH (08:13)
[2021-07-03] MEDS ORDERED: LEVOFLOXACIN 500MG PREMIX 100 ML IV SCH (14:00)
== END 2021-07-03 17:00 | disposition home or self-care (01) | DRG 871 ==
LOC: ER 13:53 → 3WST 17:38 → EDBEDREQ 17:41 → EDBEDREQTM 17:41 → ENRESERV 21:19 → CANBEDREQ 22:49 → UNDODISIN 07-02 16:45
PROVIDERS: ADMIT Internal Medicine; ATTEND Internal Medicine
PROC: 5A09357 Assistance with Respiratory Ventilation, Less than 24 Consecutive Hours, Continuous Positive Airway Pressure (ICD-10-PCS; principal; 2021-06-29)
DX: A41.9 Sepsis, unspecified organism (principal); J96.01 Acute respiratory failure with hypoxia; J18.1 Lobar pneumonia, unspecified organism; N17.9 Acute kidney failure, unspecified; E44.1 Mild protein-calorie malnutrition; J44.0 Chronic obstructive pulmonary disease with (acute) lower respiratory infection; J68.0 Bronchitis and pneumonitis due to chemicals, gases, fumes and vapors; T40.5X1A Poisoning by cocaine, accidental (unintentional), initial encounter; E11.22 Type 2 diabetes mellitus with diabetic chronic kidney disease; E11.65 Type 2 diabetes mellitus with hyperglycemia; E78.5 Hyperlipidemia, unspecified; F17.210 Nicotine dependence, cigarettes, uncomplicated; N18.9 Chronic kidney disease, unspecified; F14.10 Cocaine abuse, uncomplicated; L89.159 Pressure ulcer of sacral region, unspecified stage; D69.6 Thrombocytopenia, unspecified; I13.10 Hypertensive heart and chronic kidney disease without heart failure, with stage 1 through stage 4 chronic kidney disease, or unspecified chronic kidney disease; Z87.01 Personal history of pneumonia (recurrent); Z86.73 Personal history of transient ischemic attack (TIA), and cerebral infarction without residual deficits; Y92.89 Other specified places as the place of occurrence of the external cause
CPT/HCPCS: 36415; 36600; 71045; 71250; 76770; 80048; 80053; 80305; 81003; 82010; 82040; 82375; 82805; 82962; 83605; 83735; 83880; 84100; 84134; 84145; 84484; 85025; 87070; 87389; 87426; 90686; 90732; 93005; 94640; 97162; 99291; A6261; J1650; J1815; J1956; J2543; J3370; J7030; J7131; J7608